=== PATIENT | female | born 1935 | race Hispanic/Latino ===

== ENCOUNTER 2021-09-01 08:22 | Inpatient (IN) | payer OTHER, MEDICARE ==
[~2021-09-01] VITALS: Ht 152.4 cm; Wt 48.8 kg
[2021-09-01 09:09] LABS: BASOPHILS % (AUTO) 0.3 % (0.0-5.0); EOSINOPHILS % (AUTO) 0.4 % (0.0-8.0); HEMATOCRIT 41.8 % (36-48); LYMPHOCYTES % (AUTO) 7.1 % (21.0-51.0); MEAN CORPUSCULAR HEMOGLOBIN 28.9 pg (27.0-33.0); MEAN CORPUSCULAR HGB CONC 31.3 g/dL (32.0-36.0); MEAN CORPUSCULAR VOLUME 92.3 fL (79-99); MONOCYTES % (AUTO) 5.6 % (3.0-13.0); NEUTROPHILS % (AUTO) 86.3 % (40.0-77.0); PLATELET COUNT (AUTO) 238 K/uL (130-400); RED BLOOD CELL COUNT(AUTO) 4.53 MIL/uL (4.00-5.50); RED CELL DISTRIBUTION WIDTH 13.1 % (11.0-15.5); WHITE BLOOD COUNT (AUTO) 11.4 K/uL (4.8-10.8)
[2021-09-01 09:23] LABS: POTASSIUM 4.1 mmol/L (3.5-5.1)
[2021-09-01 09:26] LABS: APPEARANCE,URINE Clear (CLEAR); BILIRUBIN,URINE Negative (NEGATIVE); COLOR,URINE Yellow (YELLOW); GLUCOSE, URINE (UA) Negative (NEGATIVE); KETONES,URINE Negative (NEGATIVE); LEUKOCYTE ESTERASE ,URINE Trace (NEGATIVE); NITRATE,URINE Negative (NEGATIVE); OCCULT BLOOD,URINE Negative (NEGATIVE); PROTEIN,URINE Negative (NEGATIVE)
[2021-09-01 09:32] LABS: CREATININE 0.8 mg/dL (0.5-1.5)
[2021-09-01 09:37] LABS: ALBUMIN 3.7 g/dL (3.5-5.0); BILIRUBIN,TOTAL 0.8 mg/dL (0.2-1.0); TOTAL PROTEIN, SERUM 8.1 g/dL (6.0-8.3)
[2021-09-01 09:46] LABS: BACTERIA,URINE Many /HPF (None Seen); RBC,URINE 0-1 /HPF (0-1); SQUAMOUS EPITHELIAL CELL,UR Rare /HPF (0-2)
[2021-09-01] MEDS ORDERED: ASPIRIN 81MG CHEW TAB PO SCH (11:30)
[2021-09-01] MEDS ORDERED: ASPIRIN 81MG CHEW TAB ONE (11:34)
[2021-09-01] MEDS ORDERED: ACETAMINOPHEN 325 MG TAB PO PRN ×2 (13:00)
[2021-09-01] MEDS ORDERED: 0.9%NACL 1000ML 1,000 ML IV SCH (13:00)
[2021-09-01] MEDS ORDERED: ONDANSETRON 4MG INJ IV PRN (13:00)
[2021-09-01] MEDS ORDERED: LACTULOSE 20 GM/30 ML UDCUP PO PRN (13:00)
[2021-09-01] MEDS ORDERED: LEVO75CA5 PO (13:58)
[2021-09-01] MEDS ORDERED: FLUT1BLS3 IH (13:58)
[2021-09-01] MEDS ORDERED: HYDR12.54 PO (13:58)
[2021-09-01] MEDS ORDERED: MEMA5TAB42 PO ×2 (13:58)
[2021-09-01] MEDS ORDERED: VALS160T29 PO (13:58)
[2021-09-01] MEDS ORDERED: AMLO-257 PO (14:11)
[2021-09-01] MEDS ORDERED: SERTRALINE HCL 50 MG TABLET PO SCH (17:00)
[2021-09-01] MEDS: SODIUM BICARB 8.4% 50ML SYRING 150 MEQ in DEXTROSE 5%-WATER 1,000 ML IV SCH (18:04)
[2021-09-01] MEDS: TRAZODONE HCL 50 MG TAB PO SCH (21:40)
[2021-09-01] MEDS: FAMOTIDINE 20MG TAB PO SCH (21:40)
[2021-09-02 00:25] VITALS: BP 120/57
[2021-09-02] MEDS ORDERED: ROSU5TAB12 PO (01:28)
[2021-09-02] MEDS ORDERED: FOLI1 PO (01:28)
[2021-09-02] MEDS ORDERED: MIRA25TA PO (01:28)
[2021-09-02] MEDS ORDERED: GABA-529 PO (01:28)
[2021-09-02] MEDS: SODIUM BICARB 8.4% 50ML SYRING 150 MEQ in DEXTROSE 5%-WATER 1,000 ML IV SCH ×2 (01:39→20:02)
[2021-09-02 04:25] VITALS: BP 126/59
[2021-09-02 05:47] LABS: CREATININE 0.6 mg/dL (0.5-1.5)
[2021-09-02 07:00] VITALS: BP 142/76
[2021-09-02] MEDS: FAMOTIDINE 20MG TAB PO SCH ×2 (09:18→20:02)
[2021-09-02] MEDS: SERTRALINE HCL 50 MG TABLET PO SCH (09:18)
[2021-09-02] MEDS: ENOXAPARIN SODIUM 40 MG/0.4 ML SYRINGE SQ SCH (09:19)
[2021-09-02 09:54] LABS: MYOGLOBIN 117 ng/mL (10-92)
[2021-09-02 09:58] LABS: CREATINE KINASE, TOTAL 1177 U/L (21-232)
[2021-09-02 11:00] VITALS: BP 137/74
[2021-09-02] MEDS ORDERED: POTASSIUM CHLORIDE 20MEQ/100ML 100 ML IV PRN (11:00)
[2021-09-02] MEDS ORDERED: VITAD50000 PO (14:01)
[2021-09-02 14:25] LABS: MYOGLOBIN 118 ng/mL (10-92)
[2021-09-02 14:46] LABS: CREATINE KINASE, TOTAL 1198 U/L (21-232)
[2021-09-02 16:30] VITALS: BP 146/61
[2021-09-02 19:00] VITALS: BP 152/70
[2021-09-02] MEDS ORDERED: LIDOCAINE HCL-MPF 1% 2ML VIAL ONE (19:59)
[2021-09-02] MEDS: MEMANTINE HCL 5 MG TABLET PO SCH (20:02)
[2021-09-02] MEDS: TRAZODONE HCL 50 MG TAB PO SCH (20:02)
[2021-09-02] MEDS: POTASSIUM CHLORIDE 10% ELIXIR 20 MEQ/15 ML UDCUP PO PRN ×2 (20:02→22:03)
[2021-09-02 21:12] LABS: MYOGLOBIN 153 ng/mL (10-92)
[2021-09-02 21:17] LABS: CREATINE KINASE, TOTAL 1208 U/L (21-232)
[2021-09-03] VITALS: BP 138/64
[2021-09-03 04:00] VITALS: BP 151/90
[2021-09-03] MEDS: SODIUM BICARB 8.4% 50ML SYRING 150 MEQ in DEXTROSE 5%-WATER 1,000 ML IV SCH ×2 (04:16→20:04)
[2021-09-03 05:13] LABS: ALBUMIN 3.3 g/dL (3.5-5.0); BILIRUBIN,TOTAL 1.2 mg/dL (0.2-1.0); CREATININE 0.6 mg/dL (0.5-1.5); MAGNESIUM 1.8 mg/dL (1.80-2.40); POTASSIUM 3.4 mmol/L (3.5-5.1); TOTAL PROTEIN, SERUM 7.4 g/dL (6.0-8.3)
[2021-09-03] MEDS: POTASSIUM CHLORIDE 10% ELIXIR 20 MEQ/15 ML UDCUP PO PRN (05:27)
[2021-09-03 07:24] VITALS: BP 164/77
[2021-09-03 09:43] LABS: MYOGLOBIN 83 ng/mL (10-92)
[2021-09-03 09:51] LABS: CREATINE KINASE, TOTAL 802 U/L (21-232)
[2021-09-03] MEDS: SERTRALINE HCL 50 MG TABLET PO SCH (10:29)
[2021-09-03] MEDS: ENOXAPARIN SODIUM 40 MG/0.4 ML SYRINGE SQ SCH (10:29)
[2021-09-03] MEDS: FAMOTIDINE 20MG TAB PO SCH ×2 (10:29→20:49)
[2021-09-03 11:23] VITALS: BP 153/81
[2021-09-03] MEDS: ZOSYN 3.375GM +NS 50ML IV SCH ×2 (12:53→20:04)
[2021-09-03 16:00] VITALS: BP 142/86
[2021-09-03 19:00] VITALS: BP 164/96
[2021-09-03] MEDS: TRAZODONE HCL 50 MG TAB PO SCH (20:49)
[2021-09-03] MEDS: MEMANTINE HCL 5 MG TABLET PO SCH (20:49)
[2021-09-04] VITALS: BP 167/88
[2021-09-04] MEDS: ZOSYN 3.375GM +NS 50ML IV SCH ×3 (02:23→19:24)
[2021-09-04 04:00] VITALS: BP 148/68
[2021-09-04] MEDS: SODIUM BICARB 8.4% 50ML SYRING 150 MEQ in DEXTROSE 5%-WATER 1,000 ML IV SCH (05:05)
[2021-09-04 05:22] LABS: BASOPHILS % (AUTO) 0.3 % (0.0-5.0); EOSINOPHILS % (AUTO) 7.1 % (0.0-8.0); HEMATOCRIT 38.9 % (36-48); LYMPHOCYTES % (AUTO) 15.3 % (21.0-51.0); MEAN CORPUSCULAR HEMOGLOBIN 28.5 pg (27.0-33.0); MEAN CORPUSCULAR HGB CONC 32.4 g/dL (32.0-36.0); MONOCYTES % (AUTO) 9.2 % (3.0-13.0); PLATELET COUNT (AUTO) 169 K/uL (130-400); RED BLOOD CELL COUNT(AUTO) 4.42 MIL/uL (4.00-5.50); RED CELL DISTRIBUTION WIDTH 12.7 % (11.0-15.5); WHITE BLOOD COUNT (AUTO) 7.6 K/uL (4.8-10.8)
[2021-09-04 05:45] LABS: ALBUMIN 2.6 g/dL (3.5-5.0); BILIRUBIN,TOTAL 1.5 mg/dL (0.2-1.0); CREATININE 0.7 mg/dL (0.5-1.5); TOTAL PROTEIN, SERUM 6.4 g/dL (6.0-8.3)
[2021-09-04 05:49] LABS: POTASSIUM 2.8 mmol/L (3.5-5.1)
[2021-09-04] MEDS: KCL 20 MEQ ERTAB PO PRN ×4 (05:57→19:25)
[2021-09-04 06:55] VITALS: BP 140/89
[2021-09-04] MEDS: SERTRALINE HCL 50 MG TABLET PO SCH (09:07)
[2021-09-04] MEDS: FAMOTIDINE 20MG TAB PO SCH ×2 (09:07→19:25)
[2021-09-04] MEDS: ENOXAPARIN SODIUM 40 MG/0.4 ML SYRINGE SQ SCH (09:08)
[2021-09-04 11:00] VITALS: BP 125/72
[2021-09-04] MEDS ORDERED: MAGNESIUM 2GM PREMIX 50ML 50 ML IV SCH (11:30)
[2021-09-04 16:00] VITALS: BP 116/68
[2021-09-04 19:00] VITALS: BP 149/80
[2021-09-04] MEDS: TRAZODONE HCL 50 MG TAB PO SCH (19:25)
[2021-09-04] MEDS: MEMANTINE HCL 5 MG TABLET PO SCH (19:25)
[2021-09-05] VITALS: BP 121/68
[2021-09-05] MEDS: ZOSYN 3.375GM +NS 50ML IV SCH ×3 (01:52→20:44)
[2021-09-05 04:00] VITALS: BP 116/60
[2021-09-05 05:22] LABS: BASOPHILS % (AUTO) 0.6 % (0.0-5.0); EOSINOPHILS % (AUTO) 13.3 % (0.0-8.0); LYMPHOCYTES % (AUTO) 22.1 % (21.0-51.0); MEAN CORPUSCULAR HEMOGLOBIN 28.8 pg (27.0-33.0); MEAN CORPUSCULAR HGB CONC 31.4 g/dL (32.0-36.0); MEAN CORPUSCULAR VOLUME 91.8 fL (79-99); NEUTROPHILS % (AUTO) 53.8 % (40.0-77.0); PLATELET COUNT (AUTO) 183 K/uL (130-400); RED BLOOD CELL COUNT(AUTO) 4.03 MIL/uL (4.00-5.50); WHITE BLOOD COUNT (AUTO) 6.5 K/uL (4.8-10.8)
[2021-09-05 05:40] LABS: CREATININE 0.8 mg/dL (0.5-1.5); MAGNESIUM 2.6 mg/dL (1.80-2.40); POTASSIUM 3.3 mmol/L (3.5-5.1)
[2021-09-05] MEDS: KCL 20 MEQ ERTAB PO PRN (05:53)
[2021-09-05] MEDS: POTASSIUM CHLORIDE 10% ELIXIR 20 MEQ/15 ML UDCUP PO PRN ×2 (08:52→12:55)
[2021-09-05] MEDS: SERTRALINE HCL 50 MG TABLET PO SCH (08:54)
[2021-09-05] MEDS: FAMOTIDINE 20MG TAB PO SCH ×2 (08:54→20:45)
[2021-09-05] MEDS: ENOXAPARIN SODIUM 40 MG/0.4 ML SYRINGE SQ SCH (08:58)
[2021-09-05 09:41] VITALS: BP 101/59
[2021-09-05 13:17] VITALS: BP 97/49
[2021-09-05 17:13] VITALS: BP 119/64
[2021-09-05 20:00] VITALS: BP 120/68
[2021-09-05] MEDS: TRAZODONE HCL 50 MG TAB PO SCH (20:45)
[2021-09-05] MEDS: MEMANTINE HCL 5 MG TABLET PO SCH (20:45)
[2021-09-06 00:30] VITALS: BP 91/52
[2021-09-06] MEDS: ZOSYN 3.375GM +NS 50ML IV SCH ×2 (02:56→10:10)
[2021-09-06 04:10] VITALS: BP 120/64
[2021-09-06 07:25] LABS: ALBUMIN 2.4 g/dL (3.5-5.0); BILIRUBIN,TOTAL 1.3 mg/dL (0.2-1.0); CREATININE 0.8 mg/dL (0.5-1.5); POTASSIUM 3.4 mmol/L (3.5-5.1); TOTAL PROTEIN, SERUM 5.9 g/dL (6.0-8.3)
[2021-09-06 08:22] VITALS: BP 130/63
[2021-09-06] MEDS: FAMOTIDINE 20MG TAB PO SCH (10:11)
[2021-09-06] MEDS: SERTRALINE HCL 50 MG TABLET PO SCH (10:11)
[2021-09-06] MEDS: ENOXAPARIN SODIUM 40 MG/0.4 ML SYRINGE SQ SCH (10:11)
[2021-09-06] MEDS: POTASSIUM CHLORIDE 10% ELIXIR 20 MEQ/15 ML UDCUP PO PRN ×2 (12:47→12:48)
[2021-09-06 12:49] VITALS: BP 103/50
== END 2021-09-06 16:34 | DRG 558 ==
LOC: EDH 08:22 → UNDOADMOB 13:48 → INTOOBSV 13:48 → OBSVTOIN 13:48 → EDHIP 13:48 → 3BH 09-02 00:32 → EDHIP 09-02 00:32
PROVIDERS: ADMIT Internal Medicine; ATTEND Internal Medicine
DX: M62.82 Rhabdomyolysis (principal); N39.0 Urinary tract infection, site not specified; R73.9 Hyperglycemia, unspecified; F02.80 Dementia in other diseases classified elsewhere, unspecified severity, without behavioral disturbance, psychotic disturbance, mood disturbance, and anxiety; G30.9 Alzheimer's disease, unspecified; B96.20 Unspecified Escherichia coli [E. coli] as the cause of diseases classified elsewhere; E03.9 Hypothyroidism, unspecified; E78.00 Pure hypercholesterolemia, unspecified; G89.29 Other chronic pain; R54 Age-related physical debility; H91.90 Unspecified hearing loss, unspecified ear; I10 Essential (primary) hypertension; J44.9 Chronic obstructive pulmonary disease, unspecified; M19.90 Unspecified osteoarthritis, unspecified site; Z87.891 Personal history of nicotine dependence; Z91.19 Patient's noncompliance with other medical treatment and regimen; Z99.3 Dependence on wheelchair; Z79.899 Other long term (current) drug therapy
CPT/HCPCS: 36415; 70450; 72125; 73030; 80048; 80053; 81001; 82140; 82550; 82948; 83735; 83874; 84132; 84484; 85025; 87077; 87088; 87186; 87635; 93005; 97039; G0378; J1650; J2543; J3475; J3480; J3490; J7070